=== PATIENT | female | born 1960 | race Caucasian/White ===

== ENCOUNTER → 2018-10-10 09:10 | Outpatient (CLI) | payer BC, SELFPAY ==
--- NOTE | 2018-10-10 09:14 | RAD_ITS ---
STUDY: AIR-CONTRAST UPPER GI SERIES AND SMALL BOWEL FOLLOW-THROUGH EXAMINATION. REASON FOR EXAM: Female, 57 years old. Chronic constipation. Left-sided abdominal pain and bloating. FLUOROSCOPY TIME (if supplied): (2:07) minutes/seconds. 18 images were obtained. TECHNIQUE: The patient ingested barium. Multiple images of the esophagus, stomach and duodenum were obtained. Following this, a small bowel follow-through examination was performed. COMPARISON: None. FINDINGS: There is evidence of tertiary contractions of the mid and distal portion of the esophagus. There is evidence of a small sliding hiatal hernia with no evidence of gastroesophageal reflux. The remainder of the stomach is unremarkable. There is evidence of a small diverticulum in the third portion of the duodenum. A small bowel follow-through examination was performed. The transit time is normal. There is no evidence of intrinsic or extrinsic small bowel disease. The terminal ileum is unremarkable. RAD/Upper GI/w Small Bowel IMPRESSION: Small sliding hiatal hernia without gastroesophageal reflux. Small diverticulum in the third portion of the duodenum. Electronically Signed: Jordy Matthews, at 15:35 EDT , Service support ,
== END ==
PROVIDERS: Family Provider Student in an Organized Health Care Education/Training Program; PCP Student in an Organized Health Care Education/Training Program; Referring Provider Student in an Organized Health Care Education/Training Program; Visit Provider Student in an Organized Health Care Education/Training Program
DX: K59.09 Other constipation (principal); Z98.890 Other specified postprocedural states
CPT/HCPCS: 74249

== ENCOUNTER 2019-10-23 10:17 | Emergency (ER) | payer BC, SELFPAY ==
[2019-10-23 10:18] VITALS: BP 186/91; PULSE 86; RESP 22; TEMP 36.3; O2SAT 100; BMI 37.3
--- NOTE | 2019-10-23 10:25 | EKG12_ITS ---
Test Reason : Blood Pressure : / mmHG Vent. Rate : 083 BPM Atrial Rate : 083 BPM P-R Int : 136 ms QRS Dur : 088 ms QT Int : 392 ms P-R-T Axes : 038 -45 008 degrees QTc Int : 460 ms Normal sinus rhythm Left axis deviation Nonspecific ST and T wave abnormality Poor R wave progression Abnormal ECG Confirmed by WILSON PERERA, DEISY ([id number]), pictures editor KAMILLA FERREIRA ([id number]) on 10/27/2019 10:21:03 AM Referred By: ÁLVARO Confirmed By:DEISY RACHEL MD
--- NOTE | 2019-10-23 10:25 | RAD_ITS ---
STUDY: X-RAY CHEST REASON FOR EXAM: Female, 58 years old. CHEST PAIN, ACID REFLUX TECHNIQUE: PA and lateral views of the chest. COMPARISON: None. FINDINGS: EKG electrodes are seen. The lungs are clear and expanded. There is no demonstrated pleural abnormality. Normal size heart. Normal mediastinum and dianne. Normal visualized pulmonary arteries. Normal visualized aortic arch and descending thoracic aorta. There are diffuse degenerative changes of the visualized thoracic spine. Normal visualized ribs, clavicles, and shoulders. There is no demonstrated abnormality of the visualized soft tissue structures of the upper abdomen. RAD/Chest PA and Lateral IMPRESSION: No acute abnormality is seen. Electronically Signed: Jordy Matthews, at 11:20 EDT , Service support ,
--- NOTE | 2019-10-23 10:35 | ED.VIS.GEN ---
History of Present Illness Chief Complaint: Chest Pain Informant: Patient Onset: Days - Onset 3 days ago Context: Gradual Onset Timing: Continuous Quality: Pressure Location: Central/left anterior chest Current Severity: Mild Maximum Severity: Moderate Worsened by: Nothing specific Relieved by: Nothing Associated Symptoms: No associated symptoms other than belching Narrative: Patient is a 58-year-old woman with history of stomach issues and hypertension. She states she had a cough since she was changed to lisinopril. She states the chest discomfort started 3 days ago. It has not changed in location. She states once that radiated to the axilla. She has no complaint of nausea, vomiting, diaphoresis or shortness of breath. She denies history of PE or DVT. She denies leg pain, swelling or discoloration. She states she has been belching a lot. She denies intolerance to greasy or fried foods. She denies fever, chills or night sweats. She denies headache, rhinorrhea, congestion postnasal drainage or sore throat. She denies neck pain or neck stiffness. She denies change in voice. There is no history of trauma. Prior similar symptoms: No Recent Illness/Hospitalization: No - Past Medical History (1) Hypertension Status: Chronic Past Medical History - Allergies and Home Meds Allergies/Adverse Reactions: Allergies Iodinated Contrast Media [Iodinated Contrast Media - IV Dye] Allergy (Verified 10/23/19 10:22) Anaphylaxis iodine Allergy (Verified 10/23/19 10:22) Anaphylaxis Penicillins Allergy (Verified 10/23/19 10:22) Anaphylaxis prednisone Allergy (Verified 10/23/19 10:22) Rash Sulfa (Sulfonamide Antibiotics) Allergy (Verified 10/23/19 10:22) Hives Primary Care Physician: Zoran Alaniz DO [Primary Care Provider] - Prior records reviewed: Yes Surgical History: - - Dixon's procedure approximately 11 years ago Lives: Spouse/ Significant Other Smoking Status: Never smoker Alcohol: None Drugs: None Review of Systems General: Denies: Chills, Fever, Sweats Eyes: Denies: Visual changes - bilaterally ENT: Denies: Bilateral ear pain, Rhinorrhea, Sore throat Cardiovascular: Reports: Chest pain. Denies: Palpitations, Heart racing Respiratory: Denies: Dyspnea, Cough, Dyspnea on exertion Gastrointestinal: Reports: - - Positive belching. Denies: Abdominal pain, Nausea, Vomiting, Diarrhea, Constipation, Melena, Hematochezia Genitourinary: Denies: Dysuria, Hematuria, Frequency Musculoskeletal: Denies: Myalgias, Arthralgias, Neck pain, Back pain, Swelling, Extremity Pain Skin: Denies: Rash, Wounds Neurological: Denies: Headache, Weakness, Parasthesia, Numbness Psych: Reports: Depression Endocrine: Denies: Polyuria, Polydipsia Hematologic: Denies: Easy bruising, Easy bleeding Physical Exam Vital Signs/Narrative: Vital Signs Temp Pulse Resp BP Pulse Ox 10/23/19 10:18 97.3 F L 86 22 H 186/91 H 100 Inital Vital Signs reviewed: Yes General: Well nourished, Well developed, No Acute Distress Head: Normocephalic, Atraumatic Eyes: Perrl, EOMI ENT: Moist mucous membranes, No rhinorrhea Neck: Supple, Nontender Cardiovascular: Regular rate, Regular rhythm, No murmurs Respiratory: No distress, CTA bilaterally, Chest tenderness - Tenderness left of the sternum over the third, fourth and fifth intercostal space. Abdomen: Soft, Nondistended, Normal bowel sounds, Tender - Tenderness in the epigastrium.. Negative for: Nance's sign Back: Nontender, Normal Inspection Extremities: Nontender, No edema, - - There is no asymmetry, swelling, discoloration, leg vein distention, palpable cords or tenderness along the distribution of the deep venous system. Skin: Normal color, No rash Neurological: Alert, Oriented x3, Cranial nerves II-XII grossly intact, Normal Strength, Normal Sensation Psychological: Normal affect, Normal Mood Diagnostic/Tx/Re-eval Chest X-Ray - ED: 2 View, Normal, Heart, Lungs, Mediastinum, Bony Structures, No Acute Disease Impressions Chest X-Ray 10/23/19 10:25 IMPRESSION: No acute abnormality is seen. Electronically Signed: Jordy Matthews, at 11:20 EDT , Service support , 10/23/19 10:25 Chest PA and Lateral [RAD] Stat Laboratory Results 10/23/19 10/23/19 10:33 10:33 WBC 8.2 RBC 5.15 Hgb 14.5 Hct 41.6 MCV 80.8 L MCH 28.2 MCHC 34.9 RDW Std Deviation 37.5 RDW Coeff of Patrice 12.9 Plt Count 218 MPV 10.9 Immature Gran % (Auto) 0.200 Neut % (Auto) 53.1 Lymph % (Auto) 37.7 [place] % (Auto) 6.4 Eos % (Auto) 2.1 Baso % (Auto) 0.5 Absolute Neuts (auto) 4.3 Absolute Lymphs (auto) 3.08 Nucleated RBC % 0 Sodium 138 Potassium 3.7 Chloride 103 Carbon Dioxide 29.0 Anion Gap 6 BUN 12 Creatinine 0.82 Estim Creat Clear Calc 61.86 Est GFR (MDRD) Af Amer 92 Est GFR (MDRD) Non-Af 76 BUN/Creatinine Ratio 14.6 Glucose 128 H Calcium 10.4 H Troponin I < 0.015 EKG and troponin with 72 hours of pain is normal. This essentially rules out cardiac etiology. Patient did report improvement after drinking the GI cocktail. - Medical Decision Making Diagnosis includes muscular pain, costochondritis, pleurisy, angina, GERD, gastritis, diaphragmatic irritation. Patient was treated with GI cocktail and appropriate labs and images were obtained to determine the cause of patient's symptoms. ED Disposition - Plan for ED Patient: Disposition: Home or Assisted Living Diagnosis: GERD with esophagitis, Cough due to VIRGILIO inhibitor, Hyperglycemia Instructions: Gastroesophageal Reflux Disease (GERD) Referrals: Zoran Alaniz DO [Primary Care Provider] - 3-5 Days if not improving
[2019-10-23] MEDS: Mag Hydrox/Al Hydrox/Simeth 30 ML UDC PO (10:36)
[2019-10-23 10:37] VITALS: O2SAT 99
[2019-10-23 10:49] LABS: Absolute Lymphocyte Count 3.08 X10^3/uL (0.83-4.51); Absolute Neutrophil Count 4.3 X10^3/uL (2.0-7.7); Basophil# 0.04 X10^3/uL; Basophil% 0.5 % (0-1); Eosinophil# 0.17 X10^3/uL; Eosinophils% 2.1 % (0-5); Hematocrit 41.6 % (37-47); Hemoglobin 14.5 g/dL (12.0-15.0); Lymphocyte # 3.08 X10^3/ul (4.0); Lymphocyte % 37.7 % (19-41); Mean Corp Hgb Conc 34.9 g/dL (32-36); Mean Corpuscular Hgb 28.2 pg (27.0-32.0); Mean Corpuscular Volume 80.8 fL (81-99); Mean Platelet Vol. 10.9 fl (6.2-12.0); Monocyte# 0.52 X10^3/uL; Monocyte% 6.4 % (0-10); NRBC Flagged by Analyzer 0 % (0-5); Neutrophil # 4.34 X10^3/uL (2.7-7.7); Neutrophil % 53.1 % (47-70); Platelet Count 218 K/mm3 (150-450); RBC Distribution Width CV 12.9 % (11.6-14.6); RBC Distribution Width SD 37.5 fl (35.1-43.9); Red Blood Count 5.15 M/mm3 (4.2-5.4); White Blood Count 8.2 K/mm3 (4.4-11.0)
[2019-10-23 11:08] LABS: Anion Gap 6 (5-15); BUN 12 mg/dL (7-18); BUN/Creat Ratio 14.6 RATIO (10-20); Calcium,Total 10.4 mg/dL (8.5-10.1); Chloride 103 mmol/L (98-107); Creatinine, Serum 0.82 mg/dL (0.55-1.02); EST Glomerular Filtration Rate 76 mL/min (>60); Est Glom Filt Rate - Afr Amer 92 mL/min (>60); Estimated Creatinine Clearance 61.86 ml/min; Glucose 128 mg/dL (74-106); Potassium 3.7 mmol/L (3.5-5.1); Sodium Level 138 mmol/L (136-145)
[2019-10-23 11:41] VITALS: BP 152/97; PULSE 72; RESP 16; O2SAT 100
== END 2019-10-23 11:46 | disposition home or self-care (01) ==
PROVIDERS: Emergency Provider Emergency Medicine; PCP Student in an Organized Health Care Education/Training Program
DX: K21.0 Gastro-esophageal reflux disease with esophagitis (principal); R73.9 Hyperglycemia, unspecified; T46.4X5A Adverse effect of angiotensin-converting-enzyme inhibitors, initial encounter; R05 Cough; I10 Essential (primary) hypertension; Z88.0 Allergy status to penicillin; Z88.2 Allergy status to sulfonamides
CPT/HCPCS: 71046; 80048; 84484; 85025; 93005; 99285; A4216

== ENCOUNTER 2020-05-26 05:59 | Emergency (ER) | payer BC, SELFPAY ==
[2020-05-26 05:59] VITALS: BP 174/90; PULSE 78; RESP 19; TEMP 36.7; O2SAT 100; BMI 36.6
--- NOTE | 2020-05-26 06:02 | EKG12_ITS ---
Test Reason : DYSRHYTHMIA Blood Pressure : / mmHG Vent. Rate : 062 BPM Atrial Rate : 062 BPM P-R Int : 128 ms QRS Dur : 086 ms QT Int : 418 ms P-R-T Axes : 015 -29 -12 degrees QTc Int : 424 ms Normal sinus rhythm Normal ECG Confirmed by BRUNO PERERA, GONZALES ([id number]), editor dictionary NORM LINDO ([id number]) on 05/28/2020 11:02:36 AM Referred By: SYED Confirmed By:GONZALES CARR MD
[2020-05-26] MEDS: 0.9% Normal Saline 1,000 ML 1000 ML IV (06:06)
[2020-05-26] MEDS: Meclizine HCl 25 MG Tablet PO (06:07)
[2020-05-26] MEDS: Ondansetron 4 MG/2 ML Vial IV (06:07)
[2020-05-26 06:08] LABS: Absolute Lymphocyte Count 3.44 X10^3/uL (0.83-4.51); Absolute Neutrophil Count 3.3 X10^3/uL (2.0-7.7); Basophil# 0.04 X10^3/uL; Basophil% 0.5 % (0-1); Eosinophil# 0.18 X10^3/uL; Eosinophils% 2.4 % (0-5); Hematocrit 40.5 % (37-47); Hemoglobin 13.6 g/dL (12.0-15.0); Lymphocyte # 3.44 X10^3/ul (4.0); Lymphocyte % 45.7 % (19-41); Mean Corp Hgb Conc 33.6 g/dL (32-36); Mean Corpuscular Hgb 28.3 pg (27.0-32.0); Mean Corpuscular Volume 84.2 fL (81-99); Mean Platelet Vol. 11.2 fl (6.2-12.0); Monocyte# 0.55 X10^3/uL; Monocyte% 7.3 % (0-10); NRBC Flagged by Analyzer 0 % (0-5); Neutrophil % 43.8 % (47-70); Platelet Count 244 K/mm3 (150-450); RBC Distribution Width CV 12.7 % (11.6-14.6); RBC Distribution Width SD 38.7 fl (35.1-43.9); Red Blood Count 4.81 M/mm3 (4.2-5.4); White Blood Count 7.5 K/mm3 (4.4-11.0)
--- NOTE | 2020-05-26 06:10 | ED.VISSUMM ---
- ER Visit Summary Date of Service: 05/26/20 Chief Complaint: Dizziness History of Present Illness: The patient is a 59 F who presents with dizziness. It started when she woke up today. She describes it as a room spinning sensation. It does make her nauseous. She has not had any vomiting. She denies any headache with this. She denies any chest pain or shortness of breath. She has been eating and drinking okay. She did take an aspirin this morning. She does have a history of diabetes. She checked her blood sugar and it was 168 this morning. She does have a history of vertigo about 20 years ago. Physical Examination: Vital signs reviewed. HEENT does show bilateral nystagmus which makes her nausea and dizziness worse. Heart is regular rate and rhythm without murmurs. Lungs are clear to auscultation. Abdomen is soft and nontender. Extremities reveal no edema. Skin exam normal. Neurologic exam normal. Test Results: EKG is sinus rhythm with a rate of 62. No ST changes. Laboratory studies are unremarkable as of her glucose of 165. Troponin normal. Emergency Department Course and Treatment: Patient was given IV fluids, Zofran and Antivert. She continued to have symptoms so I will give her oral Valium and obtain a CT scan of the head. Her physical exam and symptomatology are consistent with a peripheral benign positional vertigo. Patient will be remedicated for her nausea with Phenergan IV. Patient will be reevaluated by the oncoming physician. Treatment Plan: [] Disposition: Pending Impression: Vertigo This note was generated with [employer] dictation software. It may contain incorrect words, spelling, and punctuation that were not noted in review of the chart prior to signing ED Disposition - Plan for ED Patient: Referrals: Zoran Alaniz DO [Primary Care Provider] -
[2020-05-26 06:26] LABS: AST(SGOT) 19 U/L (15-37); Alanine Aminotransfer ALT/SGPT 33 U/L (13-56); Alkaline Phosphatase 64 U/L (45-117); Anion Gap 5 (5-15); BUN 17 mg/dL (7-18); BUN/Creat Ratio 18.9 RATIO (10-20); Chloride 105 mmol/L (98-107); EST Glomerular Filtration Rate 68 mL/min (>60); Est Glom Filt Rate - Afr Amer 82 mL/min (>60); Estimated Creatinine Clearance 55.68 ml/min; Glucose 165 mg/dL (74-106); Potassium 3.6 mmol/L (3.5-5.1); Sodium Level 139 mmol/L (136-145)
--- NOTE | 2020-05-26 06:48 | CT_ITS ---
STUDY: CT BRAIN WITHOUT CONTRAST REASON FOR EXAM: Female, 59 years old. Dizziness and nausea today. Hx hypertension. RADIATION DOSAGE (If Supplied By Facility): CTDIvol = ( 44.99 ) mGy, DLP = ( 745.49 ) mGycm TECHNIQUE: Transaxial CT imaging of the brain was performed without administration of intravenous contrast material. Individualized dose optimization techniques were used for this CT. COMPARISON: No relevant priors. FINDINGS: Normal soft tissue structures. Normal calvarium. Normal size ventricles and extra-axial spaces for the patient''s age. Normal white matter tracts of the cerebral hemispheres. Normal basal ganglia and thalami. Normal brainstem. Normal cerebellum. There is no intracranial hemorrhage. There are no findings of an acute ischemic infarction. Normal visualized paranasal sinuses. CT/Brain/Head without Contrast IMPRESSION: Normal unenhanced CT scan of the brain. Electronically Signed: David Valderrama DO at 7:32 EST Tel , Service support ,
[2020-05-26] MEDS: proMETHazine 25 MG/ML Syringe 12.5 MG IV (07:04)
[2020-05-26] MEDS: LORazepam 1 MG Tablet PO (07:35)
[2020-05-26 08:12] VITALS: BP 147/82; PULSE 67; RESP 14; O2SAT 98
--- NOTE | 2020-05-26 09:25 | ED.DEP ---
ED Disposition - Plan for ED Patient: Disposition: Home or Assisted Living Diagnosis: Vertigo Instructions: ED BPV Vertigo Prescriptions: Meclizine HCl [Antivert] 25 mg PO 4X/DAY PRN PRN #12 tab PRN Reason: Dizziness Prescription Printed Lorazepam [Ativan] 1 mg PO TID PRN #9 tab PRN Reason: vertigo Prescription Printed Ondansetron [Zofran Odt] 4 mg PO Q6H PRN PRN #12 tab PRN Reason: Nausea Prescription Printed Referrals: Zoran Alaniz DO [Primary Care Provider] - 3-5 Days if not improving
[2020-05-26 09:35] VITALS: BP 142/83; PULSE 69; RESP 15; O2SAT 97
== END 2020-05-26 10:10 | disposition home or self-care (01) ==
PROVIDERS: Emergency Medicine; Emergency Provider Emergency Medicine; PCP Student in an Organized Health Care Education/Training Program
DX: R42 Dizziness and giddiness (principal); E11.9 Type 2 diabetes mellitus without complications; I10 Essential (primary) hypertension; R11.0 Nausea
CPT/HCPCS: 70450; 80053; 84484; 85025; 93005; 96361; 96374; 96375; 99284; J7030; J2405

== ENCOUNTER 2022-11-27 09:04 | Emergency (ER) | payer BC, SELFPAY ==
[2022-11-27 09:06] VITALS: BP 154/96; PULSE 78; RESP 16; TEMP 36.6; O2SAT 98; BMI 34.9
--- NOTE | 2022-11-27 09:11 | EX.ED.DYSGE1 ---
HPI History of Present Illness Chief Complaint: Abd Pain [facility] Medical History (Updated 11/27/22 @ 12:[address] Yoandy Flores, DO) Diabetes Home Medications cholecalciferol (vitamin D3) 50 mcg (2,000 unit) capsule (Vitamin D3) 2,000 unit PO DAILY 01/04/17 [History Last Taken Unknown] furosemide 20 mg tablet 20 mg PO DAILY 01/04/17 [History Last Taken Unknown] lisinopril 10 mg tablet 100 mg PO QHS 10/23/19 [History Last Taken Unknown] omeprazole 20 mg capsule,delayed release 20 mg PO DAILY 10/23/19 [History Last Taken Unknown] lorazepam 1 mg tablet 1 mg PO TID PRN vertigo #9 tabs 05/26/20 [Rx Last Taken Unknown] meclizine 25 mg tablet 25 mg PO 4X/DAY PRN PRN Dizziness #12 tabs 05/26/20 [Rx Last Taken Unknown] ondansetron 4 mg disintegrating tablet 4 mg PO Q6H PRN PRN Nausea #12 tabs 05/26/20 [Rx Last Taken Unknown] selenium 200 mcg tablet 200 mcg PO DAILY 05/26/20 [History Last Taken Unknown] ondansetron 4 mg disintegrating tablet 4 mg PO Q8H PRN PRN Nausea #10 tabs 11/27/22 [Rx Last Taken Unknown] oxycodone 5 mg capsule 5 mg PO Q6H PRN pain 3 days #12 caps 11/27/22 [Rx Last Taken Unknown] tamsulosin 0.4 mg capsule (Flomax) 0.4 mg PO DAILY #5 caps 11/27/22 [Rx Last Taken Unknown] Allergy/AdvReac Type Severity Reaction Status Date / Time Iodinated Contrast Media Allergy Anaphylaxis Verified 11/27/22 09:04 [Iodinated Contrast Media - IV Dye] iodine Allergy Anaphylaxis Verified 11/27/22 09:04 Penicillins Allergy Anaphylaxis Verified 11/27/22 09:04 prednisone Allergy Rash Verified 11/27/22 09:04 Sulfa (Sulfonamide Allergy Hives Verified 11/27/22 09:04 Antibiotics) diazepam [From Valium] AdvReac Nausea Verified 11/27/22 09:04 Surgical History (Updated 11/27/22 @ 09:37 by Lucia Lala) History of Dixon fundoplication Social History Smoking Status: Never smoker EXAM Physical Exam Const Vital Signs: 11/27/22 09:06 11/27/22 11:04 11/27/22 11:57 Temperature 97.8 F Temperature Source Temporal Pulse Rate 78 64 Respiratory Rate 16 16 16 Blood Pressure 154/96 H 129/72 H Blood Pressure Mean 115 91 Pulse Ox 98 97 Oxygen Delivery Method Room Air Room Air [facility] Narrative Medical decision making narrative: DVT HISTORY OF PRESENT ILLNESS: 62-year-old female here with acute onset of left side abdominal pain. The patient further states she has been suffering from 2 hours of left sided flank pain that radiates to the groin. Pain is constant, severe without alleviating factors. She denies any family or personal history of connective tissue diseases. Denies any focal numbness or weakness in the arms or legs. Denies any vomiting but notes nausea. Denies any fever. Denies any urinary symptoms such as frequency, urgency. Notes 3 bowel movements prior to arrival with no melena or hematochezia noted. REVIEW OF SYSTEMS: Pertinent positives: Abdominal pain Pertinent negatives: Fever, vomiting, melena, medic easier PHYSICAL EXAM: Nursing triage notes reviewed, Vital signs reviewed Constitutional: please see mdm HENT: MMM Eyes: Pupils equal round and reactive to light, Extraocular muscles intact Neck: No stridor, no JVD, full neck ROM Lungs: Clear to auscultation, No wheezing or rales. No increased work of breathing, no conversational dyspnea, no accessory muscle use, no nasal flaring. No respiratory distress noted Heart: Regular rate and rhythm, No murmurs, No rubs and No gallops, 2+ distal pulses (radial, femoral, posterior tibial) in all extremities Abdomen: Soft, there is no tenderness, rigidity, rebound or guarding, no obvious peritoneal signs, no palpable pulsatile abdominal masses, no auscultated abdominal bruit : Left CVAT Extremities: No edema Neuro: No focal neurological deficits, cranial nerves II through XII intact, 5/5 strength in all extremities. Intact sensation to light touch in all extremities, 2+ reflexes bilateral patella tendons. Normal gait. No ataxia. Skin: No rash or lesions noted MEDICAL DECISION MAKING: Chief Complaint: Abdominal pain External records reviewed: No recent advanced imaging of the abdomen or pelvis noted Factors affecting care: Hyperlipidemia, hypertension, type 2 diabetes Social determinants of health: Never smoker History obtained from others: Consults: ALL IMAGES HAVE BEEN PERSONALLY REVIEWED AND INTERPRETED BY MYSELF. MDM Narrative: Patient was hemodynamically stable, afebrile, nontoxic-appearing but abdominal exam without peritoneal signs. I considered the following differential diagnosis: Nephrolithiasis, pyelonephritis, AAA I obtained a CT scan of the abdomen pelvis to rule out surgical pathology in the abdomen. I also obtained a urine and labs to rule out organ dysfunction or UTI to suggest pyelonephritis. The patient anti-inflammatories, fluids and nausea medicine. CT scan showed evidence of a 3 mm calculus. The size and distal location of her stone means will likely pass on its own with anti-inflammatories, Flomax and fluids. There is no indication for admission at this time. Total critical care time today provided was at least 0 minutes. This excludes seperately billable procedures. There was a high probability of clinically significant/life threatening deterioration in the patient's condition which required my urgent intervention. Shared decision making: I will have a discussion with the patient and or visitors regarding risk/benefits of further testing or admission. They will be made aware of of the risk/benefits inherent in this decision they will be given the opportunity to voice understanding. Lab Data Attestation: I reviewed the patient's lab results. Lab results narrative: CBC without leukocytosis, severe anemia, no thrombocytopenia. BMP without evidence of significant electrolyte abnormalities, no anion gap, no acute kidney injury. LFTs show no evidence of hepatobiliary pathology. Lipase is wnl indicating no pancreatic inflammation. UA without evidence of inflammation Labs: Laboratory Results - last 24 hr 11/27/22 11/27/22 11/27/22 09:40 09:40 09:40 WBC 7.5 RBC 4.95 Hgb 14.1 Hct 40.2 MCV 81.2 MCH 28.5 MCHC 35.1 RDW Std Deviation 36.7 RDW Coeff of Patrice 12.8 Plt Count 217 MPV 11.2 Immature Gran % (Auto) 0.300 Neut % (Auto) 66.3 Lymph % (Auto) 26.8 [place] % (Auto) 5.0 Eos % (Auto) 1.2 Baso % (Auto) 0.4 Absolute Neuts (auto) 5.0 Absolute Lymphs (auto) 2.02 Nucleated RBC % 0 Sodium 137 Potassium 4.1 Chloride 100 Carbon Dioxide 22.0 Anion Gap 15 BUN 14 Creatinine 0.88 Estim Creat Clear Calc 54.83 Est GFR (MDRD) Af Amer 84 Est GFR (MDRD) Non-Af 70 BUN/Creatinine Ratio 16.0 Glucose 212 H Calcium 9.7 Total Bilirubin 0.80 Direct Bilirubin 0.21 AST 25 ALT 29 Alkaline Phosphatase 57 Total Protein 7.9 Albumin 4.2 Globulin 3.7 Lipase 13 Urine Color Urine Clarity Urine pH Ur Specific [place] Urine Protein Urine Glucose (UA) Urine Ketones Urine Occult Blood Urine Nitrite Urine Bilirubin Urine Urobilinogen Ur Leukocyte Esterase Urine RBC Urine WBC Ur Squamous Epith Cells Urine Bacteria Urine Mucus 11/27/22 11:13 WBC RBC Hgb Hct MCV MCH MCHC RDW Std Deviation RDW Coeff of Patrice Plt Count MPV Immature Gran % (Auto) Neut % (Auto) Lymph % (Auto) [place] % (Auto) Eos % (Auto) Baso % (Auto) Absolute Neuts (auto) Absolute Lymphs (auto) Nucleated RBC % Sodium Potassium Chloride Carbon Dioxide Anion Gap BUN Creatinine Estim Creat Clear Calc Est GFR (MDRD) Af Amer Est GFR (MDRD) Non-Af BUN/Creatinine Ratio Glucose Calcium Total Bilirubin Direct Bilirubin AST ALT Alkaline Phosphatase Total Protein Albumin Globulin Lipase Urine Color Yellow Urine Clarity Clear Urine pH 6.5 Ur Specific [place] 1.005 Urine Protein Negative Urine Glucose (UA) Normal Urine Ketones 5 H Urine Occult Blood 250 H Urine Nitrite Negative Urine Bilirubin Negative Urine Urobilinogen Normal Ur Leukocyte Esterase Negative Urine RBC 0-5 SEEN Urine WBC 0 SEEN Ur Squamous Epith Cells 0 SEEN Urine Bacteria 0 SEEN Urine Mucus 0 SEEN Radiography Diagnostic Testing: Clinical Impression(s) from Imaging Studies Abdomen/Pelvis CT 11/27/22 09:19 IMPRESSION: Left hydroureteronephrosis secondary to a 3 mm calculus within the distal ureter. Hiatal hernia. Colonic diverticulosis. Electronically Signed: Kaelyn Lara MD at 10:12 EDT , Discharge Plan Triage Chief Complaint: Abd Pain ED Provider: Yoandy Flores Dx/Rx/DC Orders Clinical Impression: Nephrolithiasis Instructions: Preventing Kidney Stones Prescriptions: New tamsulosin [Flomax] 0.4 mg capsule 0.4 mg PO DAILY Qty: 5 0RF oxycodone 5 mg capsule 5 mg PO Q6H PRN (Reason: pain) 3 Days Qty: 12 0RF ondansetron 4 mg tablet,disintegrating 4 mg PO Q8H PRN PRN (Reason: Nausea) Qty: 10 0RF No Action furosemide 20 MG tablet 20 mg PO DAILY Label Comments: TAKE 1 TABLET BY MOUTH AT BEDTIME NEEDED (LEG EDEMA). cholecalciferol (vitamin D3) [Vitamin D3] 2,000 UNIT capsule 2,000 unit PO DAILY lisinopril 10 MG tablet 100 mg PO QHS omeprazole 20 MG capsule,delayed release(DR/EC) 20 mg PO DAILY selenium 200 MCG tablet 200 mcg PO DAILY meclizine 25 MG tablet 25 mg PO 4X/DAY PRN PRN (Reason: Dizziness) Qty: 12 0RF lorazepam 1 MG tablet 1 mg PO TID PRN (Reason: vertigo) Qty: 9 0RF ondansetron 4 MG tablet 4 mg PO Q6H PRN PRN (Reason: Nausea) Qty: 12 0RF Stand Alone Forms: ED Work / School Excuse Primary Care Provider: Zoran Alaniz Referrals: Zoran Alaniz, [Primary Care Provider] - Activity Restrictions/Additional Instructions: Thank you for trusting us with your care today! Please take Tylenol (2 pills, 650 mg), ibuprofen (2 pills, 400 mg) every 6 hours as needed for pain and fever control. Please return to the emergency department if your symptoms change or worsen. Please follow with your primary care physician for further outpatient evaluation and management. Disposition Disposition: Home, Self Care
--- NOTE | 2022-11-27 09:19 | CT_ITS ---
INDICATION: Kidney Stone EXAMINATION: CT ABDOMEN AND PELVIS WITHOUT CONTRAST - CT Abdomen And Pelvis W/O Contrast Injection TECHNIQUE: Helically acquired images were obtained of the abdomen and pelvis without oral or IV contrast. A radiation dose optimization technique was used for this scan. IV Contrast dosage and agent: None. Oral contrast: None. RADIATION DOSAGE (If Supplied By Facility): CTDIvol = ( 16.40 ) mGy, DLP = ( 844.08 ) mGycm COMPARISON: FINDINGS: LOWER CHEST: Lung bases are clear. No cardiomegaly or pericardial effusion. LIVER: Homogeneous. No focal mass. GALLBLADDER AND BILIARY TREE: There is nonvisualization of the gallbladder. No intra- or extrahepatic biliary ductal dilation. PANCREAS: No focal cystic or solid mass. SPLEEN: Normal size without focal cystic or solid mass. ADRENAL GLANDS: No nodules. KIDNEYS AND URETERS: Normal renal size and position. There is left-sided hydroureteronephrosis secondary to a 3 mm calculus at the ureterovesicular junction. PERITONEUM: No ascites or free air. No other fluid collection. BOWEL: There is a hiatal hernia No stomach or bowel distension. There are diverticula arising from the colon. No focal inflammatory change. There is nonvisualization of the appendix. LYMPH NODES: No enlarged mesenteric or retroperitoneal lymph nodes. VESSELS: Aorta is non-dilated. URINARY BLADDER: Unremarkable. REPRODUCTIVE ORGANS: No pelvic masses. ABDOMINAL WALL: There is a small fat-containing umbilical hernia. No discrete abdominal or pelvic wall hernia. BONES: There are degenerative changes of the lumbar spine. CT/Abdomen/Pelvis without Cont IMPRESSION: Left hydroureteronephrosis secondary to a 3 mm calculus within the distal ureter. Hiatal hernia. Colonic diverticulosis. Electronically Signed: Kaelyn Lara MD at 10:12 EDT ,
[2022-11-27] MEDS: 0.9% Normal Saline 1,000 ML 999 ML IV (09:34)
[2022-11-27] MEDS: Ondansetron 4 MG/2 ML Vial IV (09:34)
[2022-11-27] MEDS: Ketorolac 15 MG/ML Vial IV (09:34)
[2022-11-27 09:50] LABS: Absolute Lymphocyte Count 2.02 X10^3/uL (0.83-4.51); Basophil# 0.03 X10^3/uL; Basophil% 0.4 % (0-1); Eosinophil# 0.09 X10^3/uL; Eosinophils% 1.2 % (0-5); Hematocrit 40.2 % (37-47); Hemoglobin 14.1 g/dL (12.0-15.0); Lymphocyte # 2.02 X10^3/ul (0.83-4.51); Lymphocyte % 26.8 % (19-41); Mean Corp Hgb Conc 35.1 g/dL (32-36); Mean Corpuscular Hgb 28.5 pg (27.0-32.0); Mean Corpuscular Volume 81.2 fL (81-99); Mean Platelet Vol. 11.2 fl (6.2-12.0); Monocyte# 0.38 X10^3/uL; NRBC Flagged by Analyzer 0 % (0-5); Neutrophil # 4.99 X10^3/uL (2.7-7.7); Neutrophil % 66.3 % (47-70); Platelet Count 217 K/mm3 (150-450); RBC Distribution Width CV 12.8 % (11.6-14.6); RBC Distribution Width SD 36.7 fl (35.1-43.9); Red Blood Count 4.95 M/mm3 (4.2-5.4); White Blood Count 7.5 K/mm3 (4.4-11.0)
[2022-11-27 10:06] LABS: AST(SGOT) 25 U/L (15-37); Alanine Aminotransfer ALT/SGPT 29 U/L (13-56); Albumin, Serum 4.2 g/dL (3.2-5.0); Alkaline Phosphatase 57 U/L (45-117); Bilirubin, Direct 0.21 mg/dL (0.00-0.30); Globulin 3.7 g/dL (2.2-4.2); Protein, Total 7.9 g/dL (6.4-8.2)
[2022-11-27 10:25] LABS: Anion Gap 15 (5-15); BUN 14 mg/dL (7-18); Calcium,Total 9.7 mg/dL (8.5-10.1); Chloride 100 mmol/L (98-107); Creatinine, Serum 0.88 mg/dL (0.55-1.02); EST Glomerular Filtration Rate 70 mL/min (>60); Est Glom Filt Rate - Afr Amer 84 mL/min (>60); Estimated Creatinine Clearance 54.83 ml/min; Glucose 212 mg/dL (74-106); Lipase 13 U/L (13-75); Potassium 4.1 mmol/L (3.5-5.1); Sodium Level 137 mmol/L (136-145)
[2022-11-27 11:04] VITALS: RESP 16
[2022-11-27 11:18] LABS: Bacteria 0 SEEN /hpf (None Seen); Mucous, Urine 0 SEEN /hpf (<or=2+); Squamous Epithelial Cells - UA 0 SEEN /hpf (5-10); White Blood Cells 0 SEEN /hpf (0-5)
[2022-11-27 11:20] LABS: Color, Urine Yellow (Yellow); Glucose, Dipstick Normal (Normal); Ketone-Dipstick 5 mg/dl (Negative); Leukocyte Esterase-Dipstick Negative /ul (Negative); Nitrite-Dipstick Negative (Negative); Occult Blood-Urine 250 /ul (Negative); Protein-Dipstick Negative (Negative); Specific Gravity, Urine 1.005 (1.002-1.030); Urine Bilirubin Dipstick Negative (Negative); Urine Clarity Clear (Clear); Urine Urobilinogen Normal (Normal); Urine pH 6.5 (5.0 - 8.0)
[2022-11-27 11:26] LABS: Red Blood Cells-Urine 0-5 SEEN /hpf (0-5)
[2022-11-27 11:57] VITALS: BP 129/72; PULSE 64; RESP 16; O2SAT 97
[2022-11-27 12:29] VITALS: RESP 18
== END 2022-11-27 12:34 | disposition home or self-care (01) ==
PROVIDERS: Emergency Provider Emergency Medicine; PCP Student in an Organized Health Care Education/Training Program; Visit Provider Emergency Medicine
DX: N13.2 Hydronephrosis with renal and ureteral calculous obstruction (principal); E11.9 Type 2 diabetes mellitus without complications; I10 Essential (primary) hypertension; E78.5 Hyperlipidemia, unspecified; Z79.899 Other long term (current) drug therapy
CPT/HCPCS: 74176; 80048; 80076; 81001; 83690; 85025; 99283; J7030; A4216; J2405

== ENCOUNTER 2023-01-29 17:30 | Outpatient (RCR) | payer SELFPAY | END 2023-01-29 23:59 | LOC: NS 17:30 | PROVIDERS: PCP Student in an Organized Health Care Education/Training Program | DX: Z71.3 Dietary counseling and surveillance (principal); E11.9 Type 2 diabetes mellitus without complications ==

== ENCOUNTER 2023-03-08 22:29 | Emergency (ER) | payer BC, SELFPAY ==
[2023-03-08 22:30] VITALS: BP 178/87; PULSE 73; RESP 16; TEMP 36.3; O2SAT 100; BMI 35.1
--- NOTE | 2023-03-08 23:46 | ED.VIS.BACK ---
HPI History of Present Illness Chief Complaint: Back Informant: patient Narrative Narrative: Patient woke up with pain across her low back bilaterally worse with movement this morning. Is been there all day. Hurts to walk and move. No obvious trigger. Sits in her chair at [employer] all day, decreased activity outside recently due to very hot ambient temperatures, does bend over and clean in her house, etc. but does not remember any obvious trigger. Has a history of kidney stones and basically is here saying she wonders if this is a kidney stone versus something else. She denies any bowel or bladder dysfunction, abdominal pain, or radiation of pain down either lower extremity. [facility] Medical History Diabetes Home Medications cholecalciferol (vitamin D3) 50 mcg (2,000 unit) capsule (Vitamin D3) 2,000 unit PO DAILY 01/04/17 [History Last Taken Unknown] furosemide 20 mg tablet 20 mg PO DAILY 01/04/17 [History Last Taken Unknown] lisinopril 10 mg tablet 100 mg PO QHS 10/23/19 [History Last Taken Unknown] omeprazole 20 mg capsule,delayed release 20 mg PO DAILY 10/23/19 [History Last Taken Unknown] lorazepam 1 mg tablet 1 mg PO TID PRN vertigo #9 tabs 05/26/20 [Rx Last Taken Unknown] meclizine 25 mg tablet 25 mg PO 4X/DAY PRN PRN Dizziness #12 tabs 05/26/20 [Rx Last Taken Unknown] ondansetron 4 mg disintegrating tablet 4 mg PO Q6H PRN PRN Nausea #12 tabs 05/26/20 [Rx Last Taken Unknown] selenium 200 mcg tablet 200 mcg PO DAILY 05/26/20 [History Last Taken Unknown] ondansetron 4 mg disintegrating tablet 4 mg PO Q8H PRN PRN Nausea #10 tabs 11/27/22 [Rx Last Taken Unknown] oxycodone 5 mg capsule 5 mg PO Q6H PRN pain 3 days #12 caps 11/27/22 [Rx Last Taken Unknown] tamsulosin 0.4 mg capsule (Flomax) 0.4 mg PO DAILY #5 caps 11/27/22 [Rx Last Taken Unknown] tramadol 50 mg tablet 50 mg PO Q6H PRN pain 3 days #12 tabs 03/08/23 [Rx Last Taken Unknown] Allergy/AdvReac Type Severity Reaction Status Date / Time Iodinated Contrast Media Allergy Anaphylaxis Verified 03/08/23 22:32 [Iodinated Contrast Media - IV Dye] iodine Allergy Anaphylaxis Verified 03/08/23 22:32 Penicillins Allergy Anaphylaxis Verified 03/08/23 22:32 prednisone Allergy Rash Verified 03/08/23 22:32 Sulfa (Sulfonamide Allergy Hives Verified 03/08/23 22:32 Antibiotics) diazepam [From Valium] AdvReac Nausea Verified 03/08/23 22:32 Surgical History History of appendectomy History of cholecystectomy History of Dixon fundoplication Social History Smoking Status: Never smoker ROS ROS ED Constitutional Constitutional ED: Denies chills or fever(s) Gastrointestinal Gastrointestinal: Denies abdominal pain, constipation, fecal incontinence, nausea or vomiting Genitourinary Genitourinary ED: Reports other Details: no urinary retention ; Denies abdominal discomfort or urinary incontinence Musculoskeletal Musculoskeletal: Reports as per HPI and back pain; Denies neck pain Integumentary Denies rash or wounds Neurologic Neurologic: Denies headache(s), paresthesias or weakness EXAM Physical Exam Const Vital Signs: 03/08/23 22:30 Temperature 97.3 F L Temperature Source Temporal Pulse Rate 73 Respiratory Rate 16 Blood Pressure 178/87 H Blood Pressure Mean 117 Pulse Ox 100 Oxygen Delivery Method Room Air Positive well nourished and well developed General Appearance ED: well developed and NAD HEENT Negative for trauma or tenderness Eyes PERRL and EOMs intact bilaterally Neck full ROM and supple GI normal to inspection, nondistended, normoactive bowel sounds, soft to palpation and non-tender Back/Spine normal to inspection Back/Spine Narrative: No rashes Lumbar Spine / Lower Back: ROM limited, paraspinal muscle tenderness right (Lumbar paraspinal musculature, reproducing pain, above SI joint) and straight leg raise negative bilaterally; Negative for lumbar spinal tenderness Extremity normal to inspection, full ROM and no pedal edema Neuro oriented x3 and no sensory deficits noted Sensorium / Orientation: alert Motor Exam: strength 5/5 throughout and clonus absent Deep Tendon Reflexes: Rt Patellar (L4): 2+, Lt Patellar (L4): 2+, Rt Ankle (S1): 2+ and Lt Ankle (S1): 2+ Deep Tendon Reflexes Back: Rt Patellar (L4): 2+, Lt Patellar (L4): 2+, Rt Ankle (S1): 2+ and Lt Ankle (S1): 2+ Plantar Reflex: Downgoing: bilateral Psych mental status grossly normal and thought process normal Skin no rashes or lesions noted and no wounds MDM MDM MDM Narrative Medical decision making narrative: History and exam are more consistent with musculoskeletal etiology. Do not think the patient is likely having renal colic here. She does not have CVA tenderness, her pain is low and lumbar. We discussed options for treatment she declines parenteral injections or strong narcotics, she does accept a prescription for some tramadol, she declines muscle relaxers. Discharge Plan Triage Chief Complaint: Back ED Provider: Lam Brennan Dx/Rx/DC Orders Clinical Impression: Acute myofascial strain of lumbosacral region Instructions: ED Back Sprain/Strain Prescriptions: New tramadol 50 mg tablet 50 mg PO Q6H PRN (Reason: pain) 3 Days Qty: 12 0RF No Action furosemide 20 MG tablet 20 mg PO DAILY Patient Comments: TAKE 1 TABLET BY MOUTH AT BEDTIME NEEDED (LEG EDEMA). cholecalciferol (vitamin D3) [Vitamin D3] 2,000 UNIT capsule 2,000 unit PO DAILY lisinopril 10 MG tablet 100 mg PO QHS omeprazole 20 MG capsule,delayed release(DR/EC) 20 mg PO DAILY selenium 200 MCG tablet 200 mcg PO DAILY meclizine 25 MG tablet 25 mg PO 4X/DAY PRN PRN (Reason: Dizziness) Qty: 12 0RF lorazepam 1 MG tablet 1 mg PO TID PRN (Reason: vertigo) Qty: 9 0RF ondansetron 4 MG tablet 4 mg PO Q6H PRN PRN (Reason: Nausea) Qty: 12 0RF tamsulosin [Flomax] 0.4 mg capsule 0.4 mg PO DAILY Qty: 5 0RF oxycodone 5 mg capsule 5 mg PO Q6H PRN (Reason: pain) 3 Days Qty: 12 0RF ondansetron 4 mg tablet,disintegrating 4 mg PO Q8H PRN PRN (Reason: Nausea) Qty: 10 0RF Primary Care Provider: Zoran Alaniz Referrals: Zoran Alaniz, [Primary Care Provider] - 1 Week if not improving Disposition Disposition: Home, Self Care
[2023-03-09 00:04] VITALS: BP 124/63; PULSE 71; RESP 15; O2SAT 98
== END 2023-03-09 00:04 | disposition home or self-care (01) ==
LOC: ED 23:52
PROVIDERS: Emergency Provider Emergency Medicine; PCP Student in an Organized Health Care Education/Training Program; Visit Provider Emergency Medicine
DX: S39.012A Strain of muscle, fascia and tendon of lower back, initial encounter (principal); Z79.899 Other long term (current) drug therapy; Z90.49 Acquired absence of other specified parts of digestive tract
CPT/HCPCS: 99283

== ENCOUNTER 2023-03-12 08:51 | Emergency (ER) | payer BC, SELFPAY ==
[2023-03-12 08:51] VITALS: BP 167/81; PULSE 71; RESP 18; TEMP 36.2; O2SAT 100; BMI 35.0
--- NOTE | 2023-03-12 09:15 | CT_ITS ---
STUDY: CT ABDOMEN AND PELVIS WITHOUT CONTRAST REASON FOR EXAM: Female, 62 years old. Right back pain, soft tissue swelling right lumbar RADIATION DOSAGE (If Supplied By Facility): CTDIvol = ( 18.86 ) mGy, DLP = ( 942.30 ) mGycm TECHNIQUE: Transaxial images were obtained from the dome of the diaphragm to the symphysis pubis without oral contrast, and without intravenous contrast. Sagittal and coronal images were reconstructed. Individualized dose optimization techniques were used for this CT. COMPARISON: Comparison is made with prior study of November 27, 2022. FINDINGS: The visualized lung bases are unremarkable. The visualized portions of the heart are within normal limits. Normal liver. The patient is status post cholecystectomy. Normal spleen. Normal pancreas. Normal bilateral adrenal glands. Normal right kidney. Normal left kidney. There is a small hiatal hernia. Normal small intestine. There are scattered colonic diverticula consistent with diverticulosis. The appendix is visualized and appears normal. Normal abdominal aorta. Normal inferior vena cava. Normal retroperitoneum. Normal urinary bladder. There is absence of the uterus consistent with a prior hysterectomy. Normal abdominal wall. Normal osseous structures. CT/Abdomen/Pelvis without Cont IMPRESSION: Status post cholecystectomy. Small hiatal hernia. No acute abnormality is seen. Electronically Signed: Jordy Matthews MD at 10:23 EDT ,
--- NOTE | 2023-03-12 09:16 | ED.VIS.BACK ---
HPI History of Present Illness Chief Complaint: Back Detail of Chief Complaint: Back pain Informant: patient Onset/Context/Timing Current Severity: 03/11 Narrative Narrative: Patient presents with back pain that started 4 days ago. Patient denies injury to her back other than she recalls carrying a box from her office tonight before. Patient woke up the next morning with pain. Patient came to the emergency department and was evaluated and thought to have musculoskeletal back pain. Patient did not want thing for pain at that time and had no imaging done or labs. Patient denies fevers or chills or sweats. She denies urinary symptoms. She denies pain rating down her legs. Patient states that she had a bowel movement this morning for the first time in 5 days. Patient also felt a knot in her right lower lumbar region. She has a history of kidney stones. Patient called her primary care physician who advised her to come in to be evaluated and potentially get a scan to rule out kidney stone. [facility] Medical History Diabetes Home Medications cholecalciferol (vitamin D3) 50 mcg (2,000 unit) capsule (Vitamin D3) 2,000 unit PO DAILY 01/04/17 [History Last Taken Unknown] furosemide 20 mg tablet 20 mg PO DAILY 01/04/17 [History Last Taken Unknown] lisinopril 10 mg tablet 100 mg PO QHS 10/23/19 [History Last Taken Unknown] omeprazole 20 mg capsule,delayed release 20 mg PO DAILY 10/23/19 [History Last Taken Unknown] lorazepam 1 mg tablet 1 mg PO TID PRN vertigo #9 tabs 05/26/20 [Rx Last Taken Unknown] meclizine 25 mg tablet 25 mg PO 4X/DAY PRN PRN Dizziness #12 tabs 05/26/20 [Rx Last Taken Unknown] ondansetron 4 mg disintegrating tablet 4 mg PO Q6H PRN PRN Nausea #12 tabs 05/26/20 [Rx Last Taken Unknown] selenium 200 mcg tablet 200 mcg PO DAILY 05/26/20 [History Last Taken Unknown] ondansetron 4 mg disintegrating tablet 4 mg PO Q8H PRN PRN Nausea #10 tabs 11/27/22 [Rx Last Taken Unknown] oxycodone 5 mg capsule 5 mg PO Q6H PRN pain 3 days #12 caps 11/27/22 [Rx Last Taken Unknown] tamsulosin 0.4 mg capsule (Flomax) 0.4 mg PO DAILY #5 caps 11/27/22 [Rx Last Taken Unknown] tramadol 50 mg tablet 50 mg PO Q6H PRN pain 3 days #12 tabs 03/08/23 [Rx Last Taken Unknown] cyclobenzaprine 10 mg tablet 10 mg PO TID PRN Muscle Spasm #20 TABLETS 03/12/23 [Rx Last Taken Unknown] Allergy/AdvReac Type Severity Reaction Status Date / Time Iodinated Contrast Media Allergy Anaphylaxis Verified 03/08/23 22:32 [Iodinated Contrast Media - IV Dye] iodine Allergy Anaphylaxis Verified 03/08/23 22:32 Penicillins Allergy Anaphylaxis Verified 03/08/23 22:32 prednisone Allergy Rash Verified 03/08/23 22:32 Sulfa (Sulfonamide Allergy Hives Verified 03/08/23 22:32 Antibiotics) diazepam [From Valium] AdvReac Nausea Verified 03/08/23 22:32 Surgical History History of appendectomy History of cholecystectomy History of Dixon fundoplication Social History Smoking Status: Never smoker ROS ROS ED Review of Systems ROS Unobtainable: other Constitutional Constitutional ED: Reports lethargy; Denies chills, fever(s), sweats or weight loss Eyes Eyes: Denies blurry vision, change in vision or diplopia ENT ENT ED: Denies rhinorrhea or sore throat Cardiovascular Cardiovascular: Denies chest pain, orthopnea or racing heartbeat Respiratory/Chest Respiratory/Chest: Denies cough, dyspnea, dyspnea on exertion, orthopnea or sputum Gastrointestinal Gastrointestinal: Denies abdominal pain, diarrhea, nausea or vomiting Genitourinary Genitourinary ED: Denies dysuria, hematuria or urinary frequency Musculoskeletal Musculoskeletal: Reports back pain; Denies arthralgias, myalgias or neck pain Integumentary Denies abscess, Abrasions or rash Neurologic Neurologic: Denies headache(s) or weakness Psychiatric Psychiatric: Denies anxiety, depression or suicidal thoughts Endocrine Endocrinology: Denies polydipsia, polyphagia or polyuria Hematologic/Lymphatic Hematologic/Lymphatic: Denies easy bleeding, easy bruising or lymphadenopathy Allergic/Immunologic Allergic/Immunologic ED: Denies mouth swelling, tongue swelling or urticaria EXAM Physical Exam Const Vital Signs: 03/12/23 08:51 Temperature 97.1 F L Temperature Source Temporal Pulse Rate 71 Respiratory Rate 18 Blood Pressure 167/81 H Blood Pressure Mean 109 Pulse Ox 100 Positive well nourished and well developed General Appearance ED: well developed and NAD HEENT Reports TM's clear and moist mucous membranes normocephalic and atraumatic; Negative for trauma or tenderness Tympanic Membrane ED: Yes TM's clear Eyes PERRL and EOMs intact bilaterally General Eye ED: Negative for pale conjunctiva or scleral icterus Neck no lymphadenopathy, supple and no JVD General: Negative for tenderness Chest Wall inspection of chest normal and palpation of chest normal Chest: Negative for tenderness Resp normal respiratory effort and clear to auscultation bilaterally Effort and Inspection: Negative for respiratory distress or pain with movement Auscultation: Negative for rhonchi, wheezes or diminished lung sounds Cardio regular rate, regular rhythm, S1 normal heart sound, S2 normal heart sound and no murmurs Peripheral Pulses: pulses 2+ throughout GI normal to inspection, nondistended, normoactive bowel sounds, soft to palpation, non-tender, non-distended and no masses Back/Spine no CVA tenderness and no thoracic nor lumbar tenderness Back/Spine Narrative: Patient with some diffuse tenderness palpation over the lumbar spine and lumbar paraspinal musculature on the right. Patient does have a soft tissue swelling in the right lumbar paraspinal region seems somewhat movable within the subcutaneous tissues measuring approximately 4 cm x 2 cm. Patient has negative straight leg raises. Deep tendon reflexes are plus 2 out of 4 bilaterally at the patella and Achilles. Patient has normal L5 extension. Patient has normal sensation to light touch. There is no evidence of erythema to the skin or cellulitic changes. There is no excess warmth. Extremity normal to inspection General Extremety ED: Negative for edema General Extremity: Negative for edema Neuro oriented x3, CN's II-XII intact bilaterally, no sensory deficits noted and gait normal Sensorium / Orientation: awake, alert, oriented to person, oriented to place and oriented to time Motor Exam: strength 5/5 throughout and strength abnormal Psych mental status grossly normal Skin no rashes or lesions noted and no wounds MDM MDM MDM Narrative Medical decision making narrative: Patient presents with back pain for 4 days. Prior visit to the ER with no imaging or lab work. Patient does have remote history of kidney stones. She was urged by her primary care physician to get evaluated again and get some imaging. IV line established on arrival. Patient was ordered Toradol. She cannot take narcotic pain medicine and does not want a narcotic pain medicine. Patient had a CBC with differential that showed a normal white count of 7.8 with hemoglobin of 13.6 and platelet count of 202. Chemistries unremarkable. BUN was 15 and creatinine 0.8. This was normal. CT flank showed showed nothing acute. At this point she will be given a prescription for Flexeril. She is to use ibuprofen or Tylenol for discomfort. She is to follow-up with her primary care physician within next 3 to 5 days. I suspect likely musculoskeletal back pain. No signs or symptoms of cauda equina or red flag symptoms of cauda equina. No radiculopathy type symptoms or findings. Lab Data Attestation: I reviewed the patient's lab results. Labs: Laboratory Results - last 24 hr 03/12/23 03/12/23 09:30 09:53 WBC 7.8 RBC 4.81 Hgb 13.6 Hct 39.8 MCV 82.7 MCH 28.3 MCHC 34.2 RDW Std Deviation 37.6 RDW Coeff of Patrice 12.5 Plt Count 202 MPV 10.6 Immature Gran % (Auto) 0.400 Neut % (Auto) 59.8 Lymph % (Auto) 30.8 [place] % (Auto) 6.4 Eos % (Auto) 2.2 Baso % (Auto) 0.4 Absolute Neuts (auto) 4.7 Absolute Lymphs (auto) 2.41 Nucleated RBC % 0 Sodium 137 Potassium 3.7 Chloride 107 Carbon Dioxide 24.0 Anion Gap 6 BUN 15 Creatinine 0.80 Estim Creat Clear Calc 60.31 Est GFR (MDRD) Af Amer 93 Est GFR (MDRD) Non-Af 77 BUN/Creatinine Ratio 18.7 Glucose 217 H Calcium 10.2 H Urine Color Yellow Urine Clarity Clear Urine pH 6.0 Ur Specific [place] 1.015 Urine Protein Negative Urine Glucose (UA) Normal Urine Ketones Negative Urine Occult Blood Negative Urine Nitrite Negative Urine Bilirubin Negative Urine Urobilinogen Normal Ur Leukocyte Esterase Negative Urine RBC 0 SEEN Urine WBC 0 SEEN Ur Squamous Epith Cells 0-5 SEEN Urine Bacteria 1+ Urine Mucus 0 SEEN Radiography Diagnostic Testing: Clinical Impression(s) from Imaging Studies Abdomen/Pelvis CT 03/12/23 09:15 IMPRESSION: Status post cholecystectomy. Small hiatal hernia. No acute abnormality is seen. Electronically Signed: Jordy Matthews MD at 10:23 EDT , Discharge Plan Triage Chief Complaint: Back ED Provider: Yola Avina Dx/Rx/DC Orders Clinical Impression: Back pain Instructions: ED Back Care Tips, ED Back Pain (Acute or Chronic), ED Back Spasm, No Trauma Prescriptions: New cyclobenzaprine [cyclobenzaprine] 10 mg tablet 10 mg PO TID PRN (Reason: Muscle Spasm) Qty: 20 0RF No Action furosemide 20 MG tablet 20 mg PO DAILY Patient Comments: TAKE 1 TABLET BY MOUTH AT BEDTIME NEEDED (LEG EDEMA). cholecalciferol (vitamin D3) [Vitamin D3] 2,000 UNIT capsule 2,000 unit PO DAILY lisinopril 10 MG tablet 100 mg PO QHS omeprazole 20 MG capsule,delayed release(DR/EC) 20 mg PO DAILY selenium 200 MCG tablet 200 mcg PO DAILY meclizine 25 MG tablet 25 mg PO 4X/DAY PRN PRN (Reason: Dizziness) Qty: 12 0RF lorazepam 1 MG tablet 1 mg PO TID PRN (Reason: vertigo) Qty: 9 0RF ondansetron 4 MG tablet 4 mg PO Q6H PRN PRN (Reason: Nausea) Qty: 12 0RF tamsulosin [Flomax] 0.4 mg capsule 0.4 mg PO DAILY Qty: 5 0RF oxycodone 5 mg capsule 5 mg PO Q6H PRN (Reason: pain) 3 Days Qty: 12 0RF ondansetron 4 mg tablet,disintegrating 4 mg PO Q8H PRN PRN (Reason: Nausea) Qty: 10 0RF tramadol 50 mg tablet 50 mg PO Q6H PRN (Reason: pain) 3 Days Qty: 12 0RF Primary Care Provider: Zoran Alaniz Referrals: Zoran Alaniz, [Primary Care Provider] - 3-5 Days Disposition Disposition: Home, Self Care Discharge Date/Time: 03/12/23 12:09
[2023-03-12 09:40] LABS: Absolute Lymphocyte Count 2.41 X10^3/uL (0.83-4.51); Absolute Neutrophil Count 4.7 X10^3/uL (2.0-7.7); Basophil# 0.03 X10^3/uL; Basophil% 0.4 % (0-1); Eosinophil# 0.17 X10^3/uL; Eosinophils% 2.2 % (0-5); Hematocrit 39.8 % (37-47); Hemoglobin 13.6 g/dL (12.0-15.0); Lymphocyte # 2.41 X10^3/ul (0.83-4.51); Lymphocyte % 30.8 % (19-41); Mean Corp Hgb Conc 34.2 g/dL (32-36); Mean Corpuscular Hgb 28.3 pg (27.0-32.0); Mean Corpuscular Volume 82.7 fL (81-99); Mean Platelet Vol. 10.6 fl (6.2-12.0); Monocyte% 6.4 % (0-10); NRBC Flagged by Analyzer 0 % (0-5); Neutrophil # 4.69 X10^3/uL (2.7-7.7); Neutrophil % 59.8 % (47-70); Platelet Count 202 K/mm3 (150-450); RBC Distribution Width CV 12.5 % (11.6-14.6); RBC Distribution Width SD 37.6 fl (35.1-43.9); Red Blood Count 4.81 M/mm3 (4.2-5.4); White Blood Count 7.8 K/mm3 (4.4-11.0)
[2023-03-12 09:55] LABS: Anion Gap 6 (5-15); BUN 15 mg/dL (7-18); BUN/Creat Ratio 18.7 RATIO (10-20); Calcium,Total 10.2 mg/dL (8.5-10.1); Chloride 107 mmol/L (98-107); EST Glomerular Filtration Rate 77 mL/min (>60); Est Glom Filt Rate - Afr Amer 93 mL/min (>60); Estimated Creatinine Clearance 60.31 ml/min; Glucose 217 mg/dL (74-106); Potassium 3.7 mmol/L (3.5-5.1); Sodium Level 137 mmol/L (136-145)
[2023-03-12] MEDS: 0.9% Normal Saline (1000mL) 1,000 ML 150 ML IV (09:56)
[2023-03-12 10:02] LABS: Mucous, Urine 0 SEEN /hpf (<or=2+); Red Blood Cells-Urine 0 SEEN /hpf (0-5); White Blood Cells 0 SEEN /hpf (0-5)
[2023-03-12 10:08] LABS: Color, Urine Yellow (Yellow); Glucose, Dipstick Normal (Normal); Ketone-Dipstick Negative (Negative); Leukocyte Esterase-Dipstick Negative /ul (Negative); Nitrite-Dipstick Negative (Negative); Occult Blood-Urine Negative /ul (Negative); Protein-Dipstick Negative (Negative); Specific Gravity, Urine 1.015 (1.002-1.030); Urine Bilirubin Dipstick Negative (Negative); Urine Clarity Clear (Clear); Urine Urobilinogen Normal (Normal)
[2023-03-12 10:50] LABS: Bacteria 1+ /hpf (None Seen); Squamous Epithelial Cells - UA 0-5 SEEN /hpf (5-10)
[2023-03-12] MEDS: cycloBENZAPRine HCl 10 MG Tablet PO (11:32)
[2023-03-12] MEDS: Ketorolac 15 MG/ML Vial IV (11:32)
== END 2023-03-12 12:09 | disposition home or self-care (01) ==
PROVIDERS: Emergency Provider Emergency Medicine; PCP Student in an Organized Health Care Education/Training Program; Visit Provider Emergency Medicine
DX: M54.9 Dorsalgia, unspecified (principal); E11.9 Type 2 diabetes mellitus without complications; Z90.49 Acquired absence of other specified parts of digestive tract
CPT/HCPCS: 74176; 80048; 81001; 85025; 96361; 96374; 99283; J7030; A4216

== ENCOUNTER 2023-11-16 12:42 | Emergency (ER) | payer BC, SELFPAY ==
[2023-11-16 12:44] VITALS: BP 206/85; PULSE 72; RESP 14; O2SAT 99
[2023-11-16 12:45] VITALS: BP 206/85; PULSE 72; RESP 14; TEMP 35.8; O2SAT 99; BMI 32.5
--- NOTE | 2023-11-16 13:24 | EKG12_ITS ---
Test Reason : HTN Blood Pressure : / mmHG Vent. Rate : 062 BPM Atrial Rate : 062 BPM P-R Int : 128 ms QRS Dur : 100 ms QT Int : 404 ms P-R-T Axes : 037 -27 012 degrees QTc Int : 410 ms Normal sinus rhythm Minimal voltage criteria for LVH, may be normal variant ( [place] product ) Borderline ECG Confirmed by Howard Diggs ([id number]), loan expeditor CATHI LOVING ([id number]) on 11/19/2023 8:49:37 AM Referred By: DANE/JOHNY Confirmed By:Howard Diggs
--- NOTE | 2023-11-16 13:24 | RAD_ITS ---
STUDY: X-RAY CHEST REASON FOR EXAM: Female, 63 years old. Chest pain TECHNIQUE: Single AP portable view of the chest. COMPARISON: Comparison is made with prior study dated October 23, 2019. FINDINGS: EKG electrodes are seen. The lungs are clear and expanded. There is no demonstrated pleural abnormality. Normal size heart. Normal mediastinum and dianne. Normal visualized pulmonary arteries. Normal visualized aortic arch and descending thoracic aorta. Normal visualized thoracic spine. Normal visualized ribs, clavicles, and shoulders. There is no demonstrated abnormality of the visualized soft tissue structures of the upper abdomen. RAD/Chest 1 View (Portable) IMPRESSION: Normal x-ray examination of the chest. Electronically Signed: Jordy Matthews MD at 13:42 EDT ,
[2023-11-16 13:44] VITALS: BP 142/62; PULSE 63; RESP 19; O2SAT 94
--- NOTE | 2023-11-16 13:44 | CT_ITS ---
STUDY: CT BRAIN WITHOUT CONTRAST REASON FOR EXAM: Female, 63 years old. Headache RADIATION DOSAGE (If Supplied By Facility): CTDIvol = ( 47.06 ) mGy, DLP = ( 819.74 ) mGycm TECHNIQUE: Transaxial CT imaging of the brain was performed without administration of intravenous contrast material. Individualized dose optimization techniques were used for this CT. COMPARISON: Comparison is made with prior study May 26, 2020. FINDINGS: Normal soft tissue structures. Normal calvarium. Normal size ventricles and extra-axial spaces for the patient''s age. Normal white matter tracts of the cerebral hemispheres. Normal basal ganglia and thalami. Normal brainstem. Normal cerebellum. There is no intracranial hemorrhage. There are no findings of an acute ischemic infarction. Normal visualized paranasal sinuses. CT/Brain/Head without Contrast IMPRESSION: Normal unenhanced CT scan of the brain. Electronically Signed: Jordy Matthews MD at 14:24 EDT ,
--- NOTE | 2023-11-16 13:45 | EX.ED.DYSGE1 ---
HPI History of Present Illness Chief Complaint: Dizziness Narrative Narrative: 63-year-old female presenting with headache and dizziness. Patient states she was just sitting at her desk when she started to get a headache which is bifrontal. She states she started to feel dizzy and nauseous. She states it is not vertiginous. She states she sat with her head between her legs for a few minutes to try to help with the dizziness and nausea. Patient states she does have history of migraines or other types of headaches. She states she took 4 Advil to help with a headache and she still has a 4/10. She checked her blood pressure and noted it was high at home. She kept repeatedly checking and it was still high. She called her primary care physician who sent her to the emergency room. Patient does have history of vertigo and states it is not exactly similar to this. She states that she does not have any chest pain or shortness of breath. She felt like her legs were weak however when she was walking. [facility] Medical History Diabetes Home Medications ?Medication ?Instructions ?Recorded ?Last Taken ?Type cholecalciferol (vitamin D3) 50 2,000 unit PO DAILY 01/04/17 Unknown History mcg (2,000 unit) capsule (Vitamin D3) furosemide 20 mg tablet 20 mg PO DAILY 01/04/17 Unknown History lisinopril 10 mg tablet 100 mg PO QHS 10/23/19 Unknown History omeprazole 20 mg capsule,delayed 20 mg PO DAILY 10/23/19 Unknown History release lorazepam 1 mg tablet 1 mg PO TID PRN vertigo #9 tabs 05/26/20 Unknown Rx meclizine 25 mg tablet 25 mg PO 4X/DAY PRN PRN Dizziness 05/26/20 Unknown Rx #12 tabs ondansetron 4 mg disintegrating 4 mg PO Q6H PRN PRN Nausea #12 tabs 05/26/20 Unknown Rx tablet selenium 200 mcg tablet 200 mcg PO DAILY 05/26/20 Unknown History ondansetron 4 mg disintegrating 4 mg PO Q8H PRN PRN Nausea #10 tabs 11/27/22 Unknown Rx tablet oxycodone 5 mg capsule 5 mg PO Q6H PRN pain 3 days #12 11/27/22 Unknown Rx caps tamsulosin 0.4 mg capsule (Flomax) 0.4 mg PO DAILY #5 caps 11/27/22 Unknown Rx tramadol 50 mg tablet 50 mg PO Q6H PRN pain 3 days #12 03/08/23 Unknown Rx tabs cyclobenzaprine 10 mg tablet 10 mg PO TID PRN Muscle Spasm #20 03/12/23 Unknown Rx TABLETS meclizine 25 mg tablet 25 mg PO TID PRN dizziness #20 tabs 11/16/23 Unknown Rx promethazine 12.5 mg tablet 12.5 mg PO TID PRN nausea and 11/16/23 Unknown Rx vomiting #20 tabs Allergy/AdvReac Type Severity Reaction Status Date / Time Iodinated Contrast Media Allergy Anaphylaxis Verified 11/16/23 12:44 (Iodinated Contrast Media - IV Dye) iodine Allergy Anaphylaxis Verified 11/16/23 12:44 Penicillins Allergy Anaphylaxis Verified 11/16/23 12:44 prednisone Allergy Rash Verified 11/16/23 12:44 Sulfa (Sulfonamide Allergy Hives Verified 11/16/23 12:44 Antibiotics) shellfish derived AdvReac Mild Swelling Verified 11/16/23 12:44 diazepam (From Valium) AdvReac Nausea Verified 11/16/23 12:44 Surgical History History of appendectomy History of cholecystectomy History of Dixon fundoplication Social History Smoking Status: Never smoker ROS ROS ED Constitutional Constitutional ED: Denies chills, fever(s) or sweats Eyes Eyes: Denies blurry vision or change in vision ENT ENT ED: Denies ear pain or sore throat Cardiovascular Cardiovascular: Denies chest pain, palpitations or racing heartbeat Respiratory/Chest Respiratory/Chest: Denies cough, dyspnea or sputum Gastrointestinal Gastrointestinal: Reports nausea; Denies abdominal pain, constipation, diarrhea or vomiting Genitourinary Genitourinary ED: Denies dysuria, hematuria or urinary frequency Musculoskeletal Musculoskeletal: Denies arthralgias, myalgias or neck pain Integumentary Denies abscess, Abrasions or rash Neurologic Neurologic: Reports headache(s); Denies paresthesias or weakness Psychiatric Psychiatric: Denies anxiety, depression, suicidal ideation or suicidal thoughts Endocrine Endocrinology: Denies polydipsia or polyuria EXAM Physical Exam Const Vital Signs: 11/16/23 12:44 11/16/23 12:45 11/16/23 12:57 Temperature 96.5 F L Temperature Source Temporal Pulse Rate 72 72 Respiratory Rate 14 14 Respiratory Effort Normal Non-Labored Respiratory Pattern Normal Blood Pressure 206/85 H 206/85 H Blood Pressure Mean 125 125 Pulse Ox 99 99 Oxygen Delivery Method Room Air Room Air 11/16/23 13:27 11/16/23 13:44 11/16/23 14:00 Temperature Temperature Source Pulse Rate 63 69 Respiratory Rate 19 H 16 Respiratory Effort Respiratory Pattern Blood Pressure 142/62 H 144/100 H Blood Pressure Mean 88 114 Pulse Ox 94 99 Oxygen Delivery Method Room Air Room Air 11/16/23 15:00 Temperature Temperature Source Pulse Rate 71 Respiratory Rate 19 H Respiratory Effort Respiratory Pattern Blood Pressure 147/74 H Blood Pressure Mean 98 Pulse Ox 98 Oxygen Delivery Method Positive well nourished General Appearance ED: NAD HEENT Reports moist mucous membranes Eyes PERRL and EOMs intact bilaterally Chest Wall inspection of chest normal Resp normal respiratory effort and clear to auscultation bilaterally Auscultation: Negative for rales, rhonchi or wheezes Cardio regular rate and regular rhythm Neuro oriented x3 and CN's II-XII intact bilaterally Neuro Narrative: No focal neurologic deficits or lateralizing signs or symptoms. Sensorium / Orientation: alert Motor Exam: strength 5/5 throughout Psych mental status grossly normal Skin no rashes or lesions noted and no wounds MDM MDM MDM Narrative Medical decision making narrative: Patient presenting with headache, dizziness, nausea, vomiting. Patient states that started with a headache. She states it was very severe and she became dizzy but states it does not quite like her vertigo in the past differential includes subarachnoid hemorrhage, atypical migraine, vertigo, dehydration, anemia, electrolyte abnormalities, dysrhythmia. Patient concerned her blood pressure was high but after sitting on the monitor her blood pressure came down to 147/74. No focal neurologic deficits on examination. I was unable to reproduce her dizziness with Hallpike maneuver but I did give her Phenergan IM because she states that Zofran was not working and this seemed to control her dizziness. CBC was obtained to assess white blood cell count, hemoglobin, platelets. BMP to assess renal function, electrolytes. High-sensitivity troponin and EKG to assess for ischemia/dysrhythmia. BNP to assess for CHF. CBC, BMP within normal limits. High-sensitivity troponin is 3. BNP 27.4. EKG on my interpretation shows normal sinus rhythm with a ventricular rate of 62 bpm without ischemic change. Chest x-ray does not show anything acute. CT brain was negative. Again on reevaluation after medicated she feels better. She is able to ambulate to the restroom. I suspect she might of had vertigo which seems to be resolved. She has a history of it. I will put her on meclizine and she is discharged in stable condition. Convalescence were discussed. Impression: 1. Vertigo 2. Nausea/vomiting Lab Data Attestation: I reviewed the patient's lab results. Labs: Laboratory Results - last 24 hr 11/16/23 13:20 WBC 7.2 RBC 4.98 Hgb 13.8 Hct 41.0 MCV 82.3 MCH 27.7 MCHC 33.7 RDW Std Deviation 38.7 RDW Coeff of Patrice 13.1 Plt Count 227 MPV 11.1 Immature Gran % (Auto) 0.300 Neut % (Auto) 62.0 Lymph % (Auto) 29.6 Armstrong % (Auto) 5.6 Eos % (Auto) 1.9 Baso % (Auto) 0.6 Absolute Neuts (auto) 4.5 Absolute Lymphs (auto) 2.13 Nucleated RBC % 0 Sodium 139 Potassium 3.6 Chloride 107 Carbon Dioxide 27.0 Anion Gap 5 BUN 11 Creatinine 0.72 Estim Creat Clear Calc 81.84 Est GFR (MDRD) Af Amer 105 Est GFR (MDRD) Non-Af 87 BUN/Creatinine Ratio 15.3 Glucose 125 H Calcium 9.8 Troponin I High Sens 3 B-Natriuretic Peptide 27.4 Radiography Diagnostic Testing: Clinical Impression(s) from Imaging Studies Chest X-Ray 11/16/23 13:24 IMPRESSION: Normal x-ray examination of the chest. Electronically Signed: Jordy Matthews MD at 13:42 EDT , Brain CT 11/16/23 13:44 IMPRESSION: Normal unenhanced CT scan of the brain. Electronically Signed: Jordy Matthews MD at 14:24 EDT , Discharge Plan Triage Chief Complaint: Dizziness Other Complaint: Nausea/Vomiting ED Provider: Carlos Eduardo Vazquez Dx/Rx/DC Orders Instructions: ED Vertigo, Unspecified Prescriptions: New meclizine 25 mg tablet 25 mg PO TID PRN (Reason: dizziness) Qty: 20 0RF promethazine 12.5 mg tablet 12.5 mg PO TID PRN (Reason: nausea and vomiting) Qty: 20 0RF No Action furosemide 20 MG tablet 20 mg PO DAILY Patient Comments: TAKE 1 TABLET BY MOUTH AT BEDTIME NEEDED (LEG EDEMA). cholecalciferol (vitamin D3) [Vitamin D3] 2,000 UNIT capsule 2,000 unit PO DAILY lisinopril 10 MG tablet 100 mg PO QHS omeprazole 20 MG capsule,delayed release(DR/EC) 20 mg PO DAILY selenium 200 MCG tablet 200 mcg PO DAILY meclizine 25 MG tablet 25 mg PO 4X/DAY PRN PRN (Reason: Dizziness) Qty: 12 0RF lorazepam 1 MG tablet 1 mg PO TID PRN (Reason: vertigo) Qty: 9 0RF ondansetron 4 MG tablet 4 mg PO Q6H PRN PRN (Reason: Nausea) Qty: 12 0RF tamsulosin [Flomax] 0.4 mg capsule 0.4 mg PO DAILY Qty: 5 0RF oxycodone 5 mg capsule 5 mg PO Q6H PRN (Reason: pain) 3 Days Qty: 12 0RF ondansetron 4 mg tablet,disintegrating 4 mg PO Q8H PRN PRN (Reason: Nausea) Qty: 10 0RF tramadol 50 mg tablet 50 mg PO Q6H PRN (Reason: pain) 3 Days Qty: 12 0RF cyclobenzaprine [cyclobenzaprine] 10 mg tablet 10 mg PO TID PRN (Reason: Muscle Spasm) Qty: 20 0RF Primary Care Provider: Zoran Alaniz Referrals: Zoran Alaniz, [Primary Care Provider] - Print Language: Stateless Disposition Disposition: Home, Self Care
[2023-11-16 13:47] LABS: Absolute Lymphocyte Count 2.13 X10^3/uL (0.83-4.51); Absolute Neutrophil Count 4.5 X10^3/uL (2.0-7.7); Basophil# 0.04 X10^3/uL; Basophil% 0.6 % (0-1); Eosinophil# 0.14 X10^3/uL; Eosinophils% 1.9 % (0-5); Hemoglobin 13.8 g/dL (12.0-15.0); Lymphocyte # 2.13 X10^3/ul (0.83-4.51); Lymphocyte % 29.6 % (19-41); Mean Corp Hgb Conc 33.7 g/dL (32-36); Mean Corpuscular Hgb 27.7 pg (27.0-32.0); Mean Corpuscular Volume 82.3 fL (81-99); Mean Platelet Vol. 11.1 fl (6.2-12.0); Monocyte% 5.6 % (0-10); NRBC Flagged by Analyzer 0 % (0-5); Neutrophil # 4.46 X10^3/uL (2.7-7.7); Platelet Count 227 K/mm3 (150-450); RBC Distribution Width CV 13.1 % (11.6-14.6); RBC Distribution Width SD 38.7 fl (35.1-43.9); Red Blood Count 4.98 M/mm3 (4.2-5.4); White Blood Count 7.2 K/mm3 (4.4-11.0)
[2023-11-16 13:54] LABS: Anion Gap 5 (5-15); BUN 11 mg/dL (7-18); BUN/Creat Ratio 15.3 RATIO (10-20); Calcium,Total 9.8 mg/dL (8.5-10.1); Chloride 107 mmol/L (98-107); Creatinine, Serum 0.72 mg/dL (0.55-1.02); EST Glomerular Filtration Rate 87 mL/min (>60); Est Glom Filt Rate - Afr Amer 105 mL/min (>60); Estimated Creatinine Clearance 81.84 ml/min; Glucose 125 mg/dL (74-106); Potassium 3.6 mmol/L (3.5-5.1); Sodium Level 139 mmol/L (136-145); Troponin-I HS 3 pg/mL (3.0-54.0)
[2023-11-16] MEDS: proMETHazine 25 MG/ML Syringe 12.5 MG IM (13:58)
[2023-11-16 14:00] VITALS: BP 144/100; PULSE 69; RESP 16; O2SAT 99
[2023-11-16 14:16] LABS: BNP,B-Type NATRIURETIC PEPTIDE 27.4 pg/mL (0-100)
[2023-11-16 15:00] VITALS: BP 147/74; PULSE 71; RESP 19; O2SAT 98
[2023-11-16 16:03] VITALS: BP 145/64; PULSE 87; RESP 16; TEMP 36.8; O2SAT 98
== END 2023-11-16 16:04 | disposition home or self-care (01) ==
PROVIDERS: Emergency Provider Student in an Organized Health Care Education/Training Program; PCP Student in an Organized Health Care Education/Training Program; Visit Provider Student in an Organized Health Care Education/Training Program
DX: R42 Dizziness and giddiness (principal); E11.9 Type 2 diabetes mellitus without complications; R11.2 Nausea with vomiting, unspecified; Z90.49 Acquired absence of other specified parts of digestive tract
CPT/HCPCS: 70450; 71045; 80048; 83880; 84484; 85025; 93005; 96372; 99284; A4216